=== PATIENT | female | born 1970 | race Caucasian/White ===

== ENCOUNTER 2020-07-06 10:51 | Emergency (ER) | payer MEDICARE ==
[~2020-07-06] VITALS: Ht 160 cm; Wt 90.7 kg
[2020-07-06] MEDS ORDERED: MORPHINE SULFATE INJ 2 MG/ML DISP.SYRIN IV ONE (12:00)
--- NOTE | 2020-07-06 12:10 | NUR ---
C/O STABBING BREAST PAIN SINCE THIS AM. PT AAOX4, VSS. RR EVEN & UNLABORED. DENIES SOB, DIZZINESS, N/V AT THIS TIME. PT SEEN & EVAL'D BY DR. LIRIANO. WILL CONT TO MONITOR.
[2020-07-06] MEDS ORDERED: MORPHINE SULFATE INJ 4 MG/ML DISP.SYRIN ONE (12:22)
--- NOTE | 2020-07-06 12:26 | NUR ---
MEDICATED PER ERMD ORDER, PT LILLIAN WELL.
[2020-07-06 12:59] VITALS: BP 134/90
== END 2020-07-06 13:00 | disposition home or self-care (01) ==
LOC: ER 10:51
DX: N64.4 Mastodynia (principal); Z98.890 Other specified postprocedural states; Z90.13 Acquired absence of bilateral breasts and nipples; Z88.1 Allergy status to other antibiotic agents
CPT/HCPCS: 96374; 99283; J2270